=== PATIENT | female | born 1995 ===

== ENCOUNTER 2018-11-12 11:47 | Observation (INO) | payer OTHER ==
[2018-11-12 11:50] VITALS: BMI 30.4
[2018-11-12 13:13] LABS: BASO # 0.1 K/uL (0.0-0.2); BASO % 0.7 % (0.0-2.0); EOS # 0.1 K/uL (0.0-0.7); EOS % 1.2 % (0.0-4.0); HEMOGLOBIN 10.8 g/dL (12.0-16.0); LYMPH # 1.8 K/uL (1.0-4.3); LYMPH % 22.9 % (20.0-40.0); MEAN CELL VOLUME 71.1 fl (81.0-99.0); MEAN CORPUSCULAR HEMOGLOBIN 22.9 pg (27.0-31.0); MEAN CORPUSCULAR HGB CONC 32.2 g/dL (33.0-37.0); MEAN PLATELET VOLUME 8.8 fl (7.2-11.7); MONO # 0.3 K/uL (0.0-0.8); MONO % 3.9 % (0.0-10.0); NEUT # 5.5 K/uL (1.8-7.0); NEUT % 71.3 % (50.0-75.0); NRBC % 0.1 % (0.0-0.0); RBC 4.7 Mil/uL (3.80-5.20); RED CELL DISTRIBUTION WIDTH 16.4 % (11.5-14.5); WHITE BLOOD COUNT 7.7 K/uL (4.8-10.8)
--- NOTE | 2018-11-12 13:21 | ED PDOC ---
HPI: Psych/Substance Abuse Time Seen by Provider: 11/12/18 12:22 Chief Complaint (Nursing): Psychiatric Evaluation Chief Complaint (Provider): psych eval History Per: Patient History/Exam Limitations: no limitations Onset/Duration Of Symptoms: Hrs Current Symptoms Are (Timing): Still Present Suicide/Self Injury Attempted (Context): Ingestion (rat poison ) Modifying Factor(s): None Severity: None Associated Symptoms: Depression, Suicidal Thoughts, Suicidal Plan Additional History Per: Patient Additional Complaint(s): 23 year old female, presents to the emergency room with EMS after called 911 because patient verbalized she had ingested rat poison. She describes the substance as small, blue "pills" she states she only took one about 1 hr 30mins prior to arrival. She is now complaining of epigastric abdominal pain and mid sternal chest pain with mild shortness of breath. Patient states she has been feeling depressed because she is under alot of "pressure". She states her does not understand her and she has a autistic child. she feel she can not handle her situation. She reports this is the first time she has ever a ttempted against her life and has not never seeked medical attention for her symptoms of depression. Denies homicidal ideations, diarrhea, fever, nausea or vomiting. Past Medical History Reviewed: Historical Data, Nursing Documentation, Vital Signs Vital Signs: Last Vital Signs Temp 98.9 F 11/12/18 11:49 Pulse 73 11/12/18 11:49 Resp 16 11/12/18 11:49 BP 138/79 11/12/18 11:49 Pulse Ox 99 11/12/18 11:49 Primary Care Provider: FAMILY PROVIDER,NO - Medical History PMH: No Chronic Diseases - Surgical History Surgical History: Tonsillectomy - Family History Family History: States: Unknown Family Hx - Living Arrangements Living Arrangements: With Family - Social History Alcohol: None Drugs: Denies - Immunization History Hx Tetanus Toxoid Vaccination: No Hx Influenza Vaccination: No Hx Pneumococcal Vaccination: No - Home Medications Home Medications: Ambulatory Orders Medication Instructions Recorded Nitrofurantoin Monohyd/M-Cryst 100 mg PO BID 4 Days #8 capsule 11/13/18 [Nitrofurantoin [place]-Mcr 100 mg] - Allergies Allergies/Adverse Reactions: Allergies Allergy/AdvReac Type Severity Reaction Status Date / Time No Known Allergies Allergy Verified 05/22/19 12:06 Review of Systems ROS Statement: Except As Marked, All Systems Reviewed And Found Negative Constitutional: Negative for: Fever, Chills, Sweats, Weakness, Malaise, Weight loss ENT: Negative for: Throat Pain Cardiovascular: Positive for: Chest Pain. Negative for: Palpitations, Light Headedness Respiratory: Positive for: Shortness of Breath. Negative for: Cough, Hemoptysis, SOB with Exertion, Wheezing Gastrointestinal: Positive for: Abdominal Pain. Negative for: Nausea, Vomiting, Diarrhea, Constipation, Melena, Hematochezia, Hematemesis, Rectal Pain Genitourinary Female: Negative for: Dysuria, Hematuria, Pelvic Pain Skin: Negative for: Rash, Bruising Neurological: Negative for: Weakness, Numbness, Incoordination, Change in Speech, Confusion, Seizures, Altered Mental Status, Headache, Dizziness Psych: Positive for: Depression, Suicidal ideation Physical Exam - Reviewed Nursing Documentation Reviewed: Yes Vital Signs Reviewed: Yes - Physical Exam Appears: Positive for: Well, Non-toxic, No Acute Distress Head Exam: Positive for: ATRAUMATIC, NORMAL INSPECTION, NORMOCEPHALIC Skin: Positive for: Normal Color, Warm. Negative for: Pallor, Jaundice, Mottled, Cyanosis Eye Exam: Positive for: Normal appearance, EOMI, PERRL. Negative for: Conjunctival injection ENT: Positive for: Normal ENT Inspection Neck: Positive for: Normal, Painless ROM, Supple Cardiovascular/Chest: Positive for: Regular Rate, Rhythm, Chest Non Tender Respiratory: Positive for: CNT, Normal Breath Sounds Pulses-Radial (L): 2+ Pulses-Radial (R): 2+ Gastrointestinal/Abdominal: Positive for: Normal Exam, Bowel Sounds (normactive ), Soft. Negative for: Tenderness, Distended Back: Positive for: Normal Inspection. Negative for: L CVA Tenderness, R CVA Tenderness Extremity: Positive for: Normal ROM Neurological/Psych: Positive for: Awake, Alert, Normal Tone, Oriented, Mood/Affect (tearful/sad. patient is otherwise pleasant, calm and cooperative ) - Laboratory Results Result Diagrams: 11/13/18 07:55 11/13/18 07:55 Urine POC: Negative - ECG O2 Sat by Pulse Oximetry: 99 - Radiology X-Ray: Read By Radiologist X-Ray Interpretation: No Acute Disease Medical Decision Making Medical Decision Making: --CBC --CMP --TROPONIN --UA --UPREG --UDS --ALCOHOL --ACETOMINOPHEN --EKG --CHEST XRAY --1:1 12:56 Spoke to Agustín underwriting sales representative at [facility], recommended to obtain baseline PT/INR and repeat coags in 24-48hrs due to possible delayed coagulopathies problems caused by rat poison. 14:27 VS: Temp: 98.9 hr: 90 b/p:116/79 o2sat: 99% rm air labs reviewed by me: unremarkable. UA: positive for lueks and many bacteria. Urine cx to be sent. Patient started on Macrobid PO in ED. Patient will need repeat PT/INR, PTT in 24-48hrs and psych evaluation. Case discussed with Dr. Covarrubias, patient for admission to medical observation for repeat bloodwork. Patient to maintain on 1:1. started 0.9ns for hydration. MD will evaluate patien t in ED. Patient aware of plan, patient states understanding and agrees with plan. 16:39 Poison control advised of blood work and patient disposition. No further recommendations. Disposition - Clinical Impression Clinical Impression: Urinary tract infection, Depression, Suicidal intent - Patient ED Disposition Is Patient to be Admitted: Yes Doctor Will See Patient In The: ED Counseled Patient/Family Regarding: Diagnosis - Disposition Disposition Time: 14:25 Condition: FAIR - Pt Status Changed To: Hospital Disposition Of: Observation - POA Present On Arrival: None
[2018-11-12 13:27] LABS: ALB/GLOB RATIO 1.3 (1.0-2.1); ALBUMIN 4.2 g/dL (3.5-5.0); ALT/SGPT 28 U/L (9-52); AST/SGOT 20 U/L (14-36); BLOOD UREA NITROGEN 9 mg/dl (7-17); CALCIUM 8.9 mg/dL (8.4-10.2); GFR NON-AFRICAN AMERICAN > 60
[2018-11-12 13:29] LABS: SQUAMOUS EPITHIAL 23 /hpf (0-5); URINE BACTERIA MANY (<OCC); URINE BILIRUBIN NEGATIVE (NEGATIVE); URINE BLOOD NEGATIVE (NEGATIVE); URINE CLARITY CLOUDY (Clear); URINE COLOR YELLOW (YELLOW); URINE GLUCOSE (UA) NEG (NEGATIVE); URINE LEUKOCYTE ESTERASE LARGE Leu/uL (Negative); URINE PROTEIN 30 mg/dL (NEGATIVE); URINE UROBILINOGEN 0.2-1.0 mg/dL (0.2-1.0)
[2018-11-12 13:40] LABS: BARBITURATES, UR NEGATIVE (NEGATIVE); BENZODIAZEPINES, UR NEGATIVE (NEGATIVE); OPIATES, UR NEGATIVE (NEGATIVE); PHENCYCLIDINE, UR NEGATIVE (NEGATIVE)
[2018-11-12 13:41] LABS: INR 1.1; PROTHROMBIN TIME 12.9 Seconds (9.8-13.1)
[2018-11-12 13:44] LABS: PARTIAL THROMBOPLASTIN TIME 35.9 Seconds (25.6-37.1)
--- NOTE | 2018-11-12 14:42 | RAD ---
Date of service: 11/12/2018 HISTORY: medical clearance COMPARISON: No prior. TECHNIQUE: 1 view obtained. FINDINGS: LUNGS: No active pulmonary disease. PLEURA: No significant pleural effusion identified, no pneumothorax apparent. CARDIOVASCULAR: No aortic atherosclerotic calcification present. Normal cardiac size. No pulmonary vascular congestion. OSSEOUS STRUCTURES: No significant abnormalities. VISUALIZED UPPER ABDOMEN: Normal. OTHER FINDINGS: None. IMPRESSION: No active disease.
[2018-11-12] MEDS ORDERED: Sodium Chloride 0.9% 1,000 ML IV STA (15:14)
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
[2018-11-12] MEDS ORDERED: Pantoprazole 40 mg EC Tab PO ONE (16:15)
[2018-11-12] MEDS: Pantoprazole 40 mg EC Tab PO SCH (16:16)
--- NOTE | 2018-11-12 17:49 | CARD ---
APPROVED REPORT Date of service: 11/12/2018 EKG Measurement Heart [id number] <Conclusion> Normal sinus rhythm Normal ECG
[2018-11-12] MEDS ORDERED: Sodium Chloride 0.9% 1,000 ML IV SCH (23:45)
[2018-11-13 08:02] LABS: HEMOGLOBIN 10.1 g/dL (12.0-16.0); MEAN CELL VOLUME 72.5 fl (81.0-99.0); MEAN CORPUSCULAR HEMOGLOBIN 22.8 pg (27.0-31.0); MEAN CORPUSCULAR HGB CONC 31.4 g/dL (33.0-37.0); RBC 4.43 Mil/uL (3.80-5.20); RED CELL DISTRIBUTION WIDTH 16.8 % (11.5-14.5); WHITE BLOOD COUNT 5.7 K/uL (4.8-10.8)
[2018-11-13 08:25] LABS: BLOOD UREA NITROGEN 8 mg/dl (7-17); CALCIUM 8.4 mg/dL (8.4-10.2); GFR NON-AFRICAN AMERICAN > 60
[2018-11-13 08:55] LABS: INR 1.1; PROTHROMBIN TIME 12.6 Seconds (9.8-13.1)
[2018-11-13 08:58] LABS: PARTIAL THROMBOPLASTIN TIME 36.7 Seconds (25.6-37.1)
[2018-11-13] MEDS: Pantoprazole 40 mg EC Tab PO SCH (10:12)
--- NOTE | 2018-11-13 11:17 | CP.PCM.PN ---
Subjective - Date & Time of Evaluation Date of Evaluation: 11/13/18 Time of Evaluation: 11:17 - Subjective Subjective: Patient seen and examined at bedside. Denies chest pain, dypsnea, nausea, vomiting, abdominal pain, dysuria, frequency, urgency. Denies SI /HI pending psychiatry evaluation. Objective - Vital Signs/Intake and Output Vital Signs (last 24 hours): Temp Pulse Resp BP Pulse Ox 97.7 F 74 20 117/82 99 11/13/18 07:52 11/13/18 07:52 11/13/18 07:52 11/13/18 07:52 11/13/18 07:52 - Medications Medications: Current Medications Nitrofurantoin Macrocrystals (Macrobid) 100 mg PO Q12 TIANNA; Protocol Last Admin: 11/13/18 10:12 Dose: 100 mg Pantoprazole Sodium (Protonix Ec Tab) 40 mg PO DAILY TIANNA Last Admin: 11/13/18 10:12 Dose: 40 mg - Labs Labs: 11/13/18 07:55 11/13/18 07:55 PT 12.6 Seconds (9.8-13.1) 11/13/18 07:55 INR 1.1 11/13/18 07:55 APTT 36.7 Seconds (25.6-37.1) 11/13/18 07:55 - Constitutional Appears: Non-toxic, No Acute Distress - Eye Exam Eye Exam: Normal appearance - ENT Exam ENT Exam: Mucous Membranes Moist - Respiratory Exam Respiratory Exam: Clear to Ausculation Bilateral, NORMAL BREATHING PATTERN. absent: Accessory Muscle Use, Chest Wall Tenderness, Decreased Breath Sounds, Prolonged Expiratory Phase, Rales, Rhonchi, Wheezes, Respiratory Distress, Stridor - Cardiovascular Exam Cardiovascular Exam: REGULAR RHYTHM, +S1, +S2 - GI/Abdominal Exam GI & Abdominal Exam: Soft, Normal Bowel Sounds. absent: Distended, Firm, Guarding, Rigid, Tenderness, Mass, Rebound - Extremities Exam Extremities Exam: Normal Capillary Refill, Normal Inspection. absent: Calf Tenderness, Pedal Edema, Tenderness - Neurological Exam Neurological Exam: Alert, Awake, Oriented x3 - Psychiatric Exam Psychiatric exam: Normal Affect, Normal Mood - Skin Skin Exam: Dry, Intact, Normal Color, Warm Assessment and Plan - Assessment and Plan (Free Text) Assessment: 23 yo female with no history present to ER due to ingestion of Rat poison admitted for Suicidal attempt. INR normal and PT/PTT normal. Urinalysis positive for UTI. Macrobid day two. Pending psychology consult. Plan: Suicidal attempt with Rat Poison 1 pill of rat poison Patient is not in acute distress Vitals wnl Repeat INR/PT/ PTT WNL CBC/CMB wnl UA + for UTI - Macrobid day 2 Protonix for epigastric pain PSych consult appreciated for Suicidal attempt. DVT SCD Early ambulation
--- NOTE | 2018-11-13 14:06 | CP.PCM.CON ---
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, not receiving enough help from and increased work duties, pt reported increased sleep, poor energy poor motivation feeling hopeless and helpless , on day of evaluation she wanted to end her life so she ingested rat poison then she felt sorry for her children so she informed her Past Patient History - Past Social History Smoking Status: Never Smoked - CARDIAC Hx Cardiac Disorders: No - PULMONARY Hx Respiratory Disorders: No - NEUROLOGICAL Hx Neurological Disorder: No - HEENT Hx HEENT Problems: No - RENAL Hx Chronic Kidney Disease: No - ENDOCRINE/METABOLIC Hx Endocrine Disorders: No - HEMATOLOGICAL/ONCOLOGICAL Hx Blood Disorders: No - INTEGUMENTARY Hx Dermatological Problems: No - MUSCULOSKELETAL/RHEUMATOLOGICAL Hx Musculoskeletal Disorders: No Hx Falls: No - GASTROINTESTINAL Hx Gastrointestinal Disorders: No - GENITOURINARY/GYNECOLOGICAL Hx Genitourinary Disorders: No - PSYCHIATRIC Hx Substance Use: No - SURGICAL HISTORY Hx Surgeries: No Hx Tonsillectomy: Yes - ANESTHESIA Hx Anesthesia: No Hx Anesthesia Reactions: No Meds Allergies/Adverse Reactions: Allergies Allergy/AdvReac Type Severity Reaction Status Date / Time No Known Allergies Allergy Verified 11/12/18 12:06 - Medications Medications: Current Medications Nitrofurantoin Macrocrystals (Macrobid) 100 mg PO Q12 TIANNA; Protocol Last Admin: 11/13/18 10:12 Dose: 100 mg Pantoprazole Sodium (Protonix Ec Tab) 40 mg PO DAILY TIANNA Last Admin: 11/13/18 10:12 Dose: 40 mg Results - Vital Signs Recent Vital Signs: Last Vital Signs Temp 97.7 F 11/13/18 07:52 Pulse 74 11/13/18 07:52 Resp 20 11/13/18 07:52 BP 117/82 11/13/18 07:52 Pulse Ox 99 11/13/18 07:52 - Labs Result Diagrams: 11/13/18 07:55 11/13/18 07:55 Labs: Laboratory Results - last 24 hr 11/13/18 11/13/18 11/13/18 07:55 07:55 07:55 WBC 5.7 RBC 4.43 Hgb 10.1 L Hct 32.1 L MCV 72.5 L MCH 22.8 L MCHC 31.4 L RDW 16.8 H Plt Count 191 PT 12.6 INR 1.1 APTT 36.7 Sodium 137 Potassium 4.4 Chloride 107 Carbon Dioxide 22 Anion Gap 12 BUN 8 Creatinine 0.4 L Est GFR ( Amer) > 60 Est GFR (Non-Af Amer) > 60 Random Glucose 103 Calcium 8.4 Assessment & Plan - Assessment and Plan (Free Text) Assessment: major depression single episode Plan: pt at current mental status need admission to psychiatry for stabilization pt agreed to sign voluntary to 3np after medical clearance
--- NOTE | 2018-11-13 15:10 | CP.PCM.DIS ---
<Sabra Sargent - Last Filed: 11/13/18 15:07> Provider - Provider Date of Admission: 11/12/18 14:46 Attending physician: Raymond Covarrubias MD Consults: 11/13/18 10:42 Psychiatry Consult Routine Comment: Consulting Provider: Leon Ulrich Consulting Physician: Leon Ulrich Reason for Consult: dx toxic ingestion; depression Time Spent in preparation of Discharge (in minutes): 30 Diagnosis - Discharge Diagnosis (1) Suicidal intent Status: Acute Comment: Suicidal attempt with one tablet of Rat poison. PT/PTT and INR within normal range. Asymptomatic. No evidence of bleeding of mucosal membranes. H/H stable. To be admitted to [facility] 3rd floor (2) Depression Status: Acute (3) Urinary tract infection Status: Acute Comment: Urinalysis evident for UTI. Continue Nitrofurantoin for 4 more days. Hospital Course - Lab Results Lab Results: Most Recent Lab Values WBC 5.7 K/uL (4.8-10.8) 11/13/18 07:55 RBC 4.43 Mil/uL (3.80-5.20) 11/13/18 07:55 Hgb 10.1 g/dL (12.0-16.0) L 11/13/18 07:55 Hct 32.1 % (34.0-47.0) L 11/13/18 07:55 MCV 72.5 fl (81.0-99.0) L 11/13/18 07:55 MCH 22.8 pg (27.0-31.0) L 11/13/18 07:55 MCHC 31.4 g/dL (33.0-37.0) L 11/13/18 07:55 RDW 16.8 % (11.5-14.5) H 11/13/18 07:55 Plt Count 191 K/uL (130-400) 11/13/18 07:55 MPV 8.8 fl (7.2-11.7) 11/12/18 13:00 Neut % (Auto) 71.3 % (50.0-75.0) 11/12/18 13:00 Lymph % (Auto) 22.9 % (20.0-40.0) 11/12/18 13:00 [place] % (Auto) 3.9 % (0.0-10.0) 11/12/18 13:00 Eos % (Auto) 1.2 % (0.0-4.0) 11/12/18 13:00 Baso % (Auto) 0.7 % (0.0-2.0) 11/12/18 13:00 Neut # (Auto) 5.5 K/uL (1.8-7.0) 11/12/18 13:00 Lymph # (Auto) 1.8 K/uL (1.0-4.3) 11/12/18 13:00 [place] # (Auto) 0.3 K/uL (0.0-0.8) 11/12/18 13:00 Eos # (Auto) 0.1 K/uL (0.0-0.7) 11/12/18 13:00 Baso # (Auto) 0.1 K/uL (0.0-0.2) 11/12/18 13:00 PT 12.6 Seconds (9.8-13.1) 11/13/18 07:55 INR 1.1 11/13/18 07:55 APTT 36.7 Seconds (25.6-37.1) 11/13/18 07:55 Sodium 137 mmol/l (132-148) 11/13/18 07:55 Potassium 4.4 MMOL/L (3.6-5.0) 11/13/18 07:55 Chloride 107 mmol/L (98-107) 11/13/18 07:55 Carbon Dioxide 22 mmol/L (22-30) 11/13/18 07:55 Anion Gap 12 (10-20) 11/13/18 07:55 BUN 8 mg/dl (7-17) 11/13/18 07:55 Creatinine 0.4 mg/dl (0.7-1.2) L 11/13/18 07:55 Est GFR ( Amer) > 60 11/13/18 07:55 Est GFR (Non-Af Amer) > 60 11/13/18 07:55 Random Glucose 103 mg/dL (65-105) 11/13/18 07:55 Calcium 8.4 mg/dL (8.4-10.2) 11/13/18 07:55 Total Bilirubin 0.3 mg/dl (0.2-1.3) 11/12/18 13:00 AST 20 U/L (14-36) 11/12/18 13:00 ALT 28 U/L (9-52) 11/12/18 13:00 Alkaline Phosphatase 94 U/L (38-126) 11/12/18 13:00 Troponin I < 0.0120 ng/mL (0.00-0.120) 11/12/18 13:00 Total Protein 7.4 G/DL (6.3-8.2) 11/12/18 13:00 Albumin 4.2 g/dL (3.5-5.0) 11/12/18 13:00 Globulin 3.2 gm/dL (2.2-3.9) 11/12/18 13:00 Albumin/Globulin Ratio 1.3 (1.0-2.1) 11/12/18 13:00 Urine Color Yellow (YELLOW) 11/12/18 13:15 Urine Clarity Cloudy (Clear) 11/12/18 13:15 Urine pH 6.0 (5.0-8.0) 11/12/18 13:15 Ur Specific [place] 1.025 (1.003-1.030) 11/12/18 13:15 Urine Protein 30 mg/dL (NEGATIVE) 11/12/18 13:15 Urine Glucose (UA) Neg mg/dL (NEGATIVE) 11/12/18 13:15 Urine Ketones Negative mg/dL (NEGATIVE) 11/12/18 13:15 Urine Blood Negative (NEGATIVE) 11/12/18 13:15 Urine Nitrate Negative (NEGATIVE) 11/12/18 13:15 Urine Bilirubin Negative (NEGATIVE) 11/12/18 13:15 Urine Urobilinogen 0.2-1.0 mg/dL (0.2-1.0) 11/12/18 13:15 Ur Leukocyte Esterase Large Castro/uL (Negative) 11/12/18 13:15 Urine RBC (Auto) 20 /hpf (0-3) H 11/12/18 13:15 Urine Microscopic WBC 18 /hpf (0-5) H 11/12/18 13:15 Ur Squamous Epith Cells 23 /hpf (0-5) H 11/12/18 13:15 Urine Bacteria Many (<OCC) H 11/12/18 13:15 Urine Opiates Screen Negative (NEGATIVE) 11/12/18 13:15 Urine Methadone Screen Negative (NEGATIVE) 11/12/18 13:15 Acetaminophen < 10.0 ug/ml (10.0-30.0) L 11/12/18 13:00 Ur Barbiturates Screen Negative (NEGATIVE) 11/12/18 13:15 Ur Phencyclidine Scrn Negative (NEGATIVE) 11/12/18 13:15 Ur Amphetamines Screen Negative (NEGATIVE) 11/12/18 13:15 U Benzodiazepines Scrn Negative (NEGATIVE) 11/12/18 13:15 U Oth Cocaine Metabols Negative (NEGATIVE) 11/12/18 13:15 U Cannabinoids Screen Negative (NEGATIVE) 11/12/18 13:15 Alcohol, Quantitative < 10 mg/dl (0-10) 11/12/18 13:00 - Hospital Course Hospital Course: 23 yo female with no history present to ER due to ingestion of Rat poison admitted for Suicidal attempt. INR normal and PT/PTT normal. H/H stable. No evidence of bleeding. Urinalysis positive for UTI. Will be admitted To psychiatric floor for suicidal attempt. Macrobid BID to be continued for 4 more days for UTI. Discharge Exam - Head Exam Head Exam: ATRAUMATIC, NORMAL INSPECTION, NORMOCEPHALIC - Eye Exam Eye Exam: Normal appearance - ENT Exam ENT Exam: Mucous Membranes Moist - Respiratory Exam Respiratory Exam: Clear to PA & Lateral, NORMAL BREATHING PATTERN, UNREMARKABLE. absent: Accessory Muscle Use, Chest Wall Tenderness, Decreased Breath Sounds, Prolonged Expiratory Phase, Rales, Rhonchi, Wheezes, Respiratory Distress, Stridor - Cardiovascular Exam Cardiovascular Exam: +S1, +S2 - GI/Abdominal Exam GI & Abdominal Exam: Normal Bowel Sounds, Soft, Unremarkable. absent: Diminished Bowel Sounds, Distended, Firm, Rebound, Rigid, Tenderness - Extremities Exam Extremities exam: normal capillary refill, normal inspection, pedal pulses present - Neurological Exam Neurological exam: Alert, Oriented x3 - Psychiatric Exam Psychiatric exam: Normal Affect, Normal Mood - Skin Skin Exam: Dry, Intact, Normal Color, Warm Discharge Plan - Discharge Medications Prescriptions: Nitrofurantoin Monohyd/M-Cryst [Nitrofurantoin [place]-Mcr 100 mg] 100 mg PO BID 4 Days #8 capsule - Follow Up Plan Condition: FAIR Disposition: HOME/ ROUTINE Patient education suggested?: Yes Instructions: Depression, Adult (DC), Urinary Tract Infection, Adult (DC) Additional Instructions: hacer ally con oscar doctor primario dentro 1 semana Outpt Psych appt colt Referrals: [facility] [Outside] at [place] [Outside] Leon Ulrich MD [Medical Doctor] - <Marita Gray - Last Filed: 11/14/18 17:52> Provider - Provider Date of Admission: 11/12/18 14:46 Attending physician: Raymond Covarrubias MD Consults: 11/13/18 10:42 Psychiatry Consult Routine Comment: Consulting Provider: Leon Ulrich Consulting Physician: Leon Ulrich Reason for Consult: dx toxic ingestion; depression Hospital Course - Lab Results Lab Results: Micro Results 11/12/18 16:45 Urine Random Urine Culture - Final Lactobacillus Species Most Recent Lab Values WBC 5.7 K/uL (4.8-10.8) 11/13/18 07:55 RBC 4.43 Mil/uL (3.80-5.20) 11/13/18 07:55 Hgb 10.1 g/dL (12.0-16.0) L 11/13/18 07:55 Hct 32.1 % (34.0-47.0) L 11/13/18 07:55 MCV 72.5 fl (81.0-99.0) L 11/13/18 07:55 MCH 22.8 pg (27.0-31.0) L 11/13/18 07:55 MCHC 31.4 g/dL (33.0-37.0) L 11/13/18 07:55 RDW 16.8 % (11.5-14.5) H 11/13/18 07:55 Plt Count 191 K/uL (130-400) 11/13/18 07:55 MPV 8.8 fl (7.2-11.7) 11/12/18 13:00 Neut % (Auto) 71.3 % (50.0-75.0) 11/12/18 13:00 Lymph % (Auto) 22.9 % (20.0-40.0) 11/12/18 13:00 [place] % (Auto) 3.9 % (0.0-10.0) 11/12/18 13:00 Eos % (Auto) 1.2 % (0.0-4.0) 11/12/18 13:00 Baso % (Auto) 0.7 % (0.0-2.0) 11/12/18 13:00 Neut # (Auto) 5.5 K/uL (1.8-7.0) 11/12/18 13:00 Lymph # (Auto) 1.8 K/uL (1.0-4.3) 11/12/18 13:00 [place] # (Auto) 0.3 K/uL (0.0-0.8) 11/12/18 13:00 Eos # (Auto) 0.1 K/uL (0.0-0.7) 11/12/18 13:00 Baso # (Auto) 0.1 K/uL (0.0-0.2) 11/12/18 13:00 PT 12.6 Seconds (9.8-13.1) 11/13/18 07:55 INR 1.1 11/13/18 07:55 APTT 36.7 Seconds (25.6-37.1) 11/13/18 07:55 Sodium 137 mmol/l (132-148) 11/13/18 07:55 Potassium 4.4 MMOL/L (3.6-5.0) 11/13/18 07:55 Chloride 107 mmol/L (98-107) 11/13/18 07:55 Carbon Dioxide 22 mmol/L (22-30) 11/13/18 07:55 Anion Gap 12 (10-20) 11/13/18 07:55 BUN 8 mg/dl (7-17) 11/13/18 07:55 Creatinine 0.4 mg/dl (0.7-1.2) L 11/13/18 07:55 Est GFR ( Amer) > 60 11/13/18 07:55 Est GFR (Non-Af Amer) > 60 11/13/18 07:55 Random Glucose 103 mg/dL (65-105) 11/13/18 07:55 Calcium 8.4 mg/dL (8.4-10.2) 11/13/18 07:55 Total Bilirubin 0.3 mg/dl (0.2-1.3) 11/12/18 13:00 AST 20 U/L (14-36) 11/12/18 13:00 ALT 28 U/L (9-52) 11/12/18 13:00 Alkaline Phosphatase 94 U/L (38-126) 11/12/18 13:00 Troponin I < 0.0120 ng/mL (0.00-0.120) 11/12/18 13:00 Total Protein 7.4 G/DL (6.3-8.2) 11/12/18 13:00 Albumin 4.2 g/dL (3.5-5.0) 11/12/18 13:00 Globulin 3.2 gm/dL (2.2-3.9) 11/12/18 13:00 Albumin/Globulin Ratio 1.3 (1.0-2.1) 11/12/18 13:00 Urine Color Yellow (YELLOW) 11/12/18 13:15 Urine Clarity Cloudy (Clear) 11/12/18 13:15 Urine pH 6.0 (5.0-8.0) 11/12/18 13:15 Ur Specific [place] 1.025 (1.003-1.030) 11/12/18 13:15 Urine Protein 30 mg/dL (NEGATIVE) 11/12/18 13:15 Urine Glucose (UA) Neg mg/dL (NEGATIVE) 11/12/18 13:15 Urine Ketones Negative mg/dL (NEGATIVE) 11/12/18 13:15 Urine Blood Negative (NEGATIVE) 11/12/18 13:15 Urine Nitrate Negative (NEGATIVE) 11/12/18 13:15 Urine Bilirubin Negative (NEGATIVE) 11/12/18 13:15 Urine Urobilinogen 0.2-1.0 mg/dL (0.2-1.0) 11/12/18 13:15 Ur Leukocyte Esterase Large Castro/uL (Negative) 11/12/18 13:15 Urine RBC (Auto) 20 /hpf (0-3) H 11/12/18 13:15 Urine Microscopic WBC 18 /hpf (0-5) H 11/12/18 13:15 Ur Squamous Epith Cells 23 /hpf (0-5) H 11/12/18 13:15 Urine Bacteria Many (<OCC) H 11/12/18 13:15 Urine Opiates Screen Negative (NEGATIVE) 11/12/18 13:15 Urine Methadone Screen Negative (NEGATIVE) 11/12/18 13:15 Acetaminophen < 10.0 ug/ml (10.0-30.0) L 11/12/18 13:00 Ur Barbiturates Screen Negative (NEGATIVE) 11/12/18 13:15 Ur Phencyclidine Scrn Negative (NEGATIVE) 11/12/18 13:15 Ur Amphetamines Screen Negative (NEGATIVE) 11/12/18 13:15 U Benzodiazepines Scrn Negative (NEGATIVE) 11/12/18 13:15 U Oth Cocaine Metabols Negative (NEGATIVE) 11/12/18 13:15 U Cannabinoids Screen Negative (NEGATIVE) 11/12/18 13:15 Alcohol, Quantitative < 10 mg/dl (0-10) 11/12/18 13:00 Attending/Attestation - Attestation I have personally seen and examined this patient.: Yes I have fully participated in the care of the patient.: Yes I have reviewed all pertinent clinical information, including history, physical exam and plan: Yes Notes (Text): Rat Poison Ingestion, Intentional Suicidal Attempt Depression Urinary tract infection Pt observed in the Hospital with 1:1 she claims she took only 1 tablet INR monitored- normal Pt remained stable Psych rec Inpatient admission- pt refused , [facility] called for involuntary admission however deemed not committable Cleared by DR Ulrich for discharge home and outpt Psych ff up
[2018-11-13 15:48] VITALS: RESP 18
[2018-11-14 00:05] VITALS: BP 107/62; PULSE 94; TEMP 98.5
[2018-11-14] MEDS: Pantoprazole 40 mg EC Tab PO SCH (09:40)
--- NOTE | 2018-11-14 10:35 | CP.PCM.PN ---
<RosettaEliaSabra - Last Filed: 11/14/18 11:16> Subjective - Date & Time of Evaluation Date of Evaluation: 11/14/18 Time of Evaluation: 10:35 - Subjective Subjective: Patient was not discharged yesterday to psychiatry given that she did not want to be admitted to psych. [facility] was called but they reported that the patient did not meet criteria for involuntary inpatient admission and may be discharged safely home. Objective - Vital Signs/Intake and Output Vital Signs (last 24 hours): Temp Pulse Resp BP Pulse Ox 98.5 F 94 H 18 107/62 95 11/14/18 00:05 11/14/18 00:05 11/14/18 00:05 11/14/18 00:05 11/14/18 00:05 - Medications Medications: Current Medications Nitrofurantoin Macrocrystals (Macrobid) 100 mg PO Q12 [facility]; Protocol Last Admin: 11/14/18 09:40 Dose: 100 mg Pantoprazole Sodium (Protonix Ec Tab) 40 mg PO DAILY [facility] Last Admin: 11/14/18 09:40 Dose: 40 mg - Labs Labs: 11/13/18 07:55 11/13/18 07:55 PT 12.6 Seconds (9.8-13.1) 11/13/18 07:55 INR 1.1 11/13/18 07:55 APTT 36.7 Seconds (25.6-37.1) 11/13/18 07:55 - Constitutional Appears: Non-toxic, No Acute Distress - Head Exam Head Exam: NORMAL INSPECTION - Eye Exam Eye Exam: Normal appearance - ENT Exam ENT Exam: Mucous Membranes Moist - Respiratory Exam Respiratory Exam: Clear to Ausculation Bilateral, NORMAL BREATHING PATTERN. absent: Accessory Muscle Use, Chest Wall Tenderness, Decreased Breath Sounds, Prolonged Expiratory Phase, Rales, Rhonchi, Wheezes, Respiratory Distress, Stridor - Cardiovascular Exam Cardiovascular Exam: REGULAR RHYTHM, +S1, +S2 - GI/Abdominal Exam GI & Abdominal Exam: Soft, Normal Bowel Sounds. absent: Distended, Firm, Guarding, Rigid, Rebound - Extremities Exam Extremities Exam: Normal Capillary Refill, Normal Inspection. absent: Calf Tenderness, Joint Swelling, Pedal Edema, Tenderness - Neurological Exam Neurological Exam: Alert, Awake, Oriented x3 - Psychiatric Exam Psychiatric exam: Normal Affect, Normal Mood Additional comments: No SI/HI at this time - Skin Skin Exam: Dry, Intact, Normal Color, Warm Assessment and Plan (1) Suicidal intent Status: Acute (2) Depression Status: Acute (3) Urinary tract infection Status: Acute - Assessment and Plan (Free Text) Assessment: 23 yo female with no history present to ER due to ingestion of Rat poison admitted for Suicidal attempt. INR normal and PT/PTT normal. Urinalysis positive for UTI. Macrobid day two. Patient seen by [facility] for involuntary admission because of use of rat poisoning for suicidal intention. Cleared from [facility] as safe discharge at this time without need for psychiatric admission. Patient will be discharged home. Plan: Suicidal attempt with Rat Poison 1 pill of rat poison Patient is not in acute distress Vitals wnl Repeat INR/PT/ PTT WNL CBC/CMB wnl UA + for UTI - Macrobid day 2 Protonix for epigastric pain Patient discharged home as deemed safe by [facility] to be discharged home. <Marita Gray - Last Filed: 11/14/18 17:50> Objective - Vital Signs/Intake and Output Vital Signs (last 24 hours): Temp Pulse Resp BP Pulse Ox 98.5 F 94 H 18 107/62 95 11/14/18 00:05 11/14/18 00:05 11/14/18 00:05 11/14/18 00:05 11/14/18 00:05 - Labs Labs: 11/13/18 07:55 11/13/18 07:55 PT 12.6 Seconds (9.8-13.1) 11/13/18 07:55 INR 1.1 11/13/18 07:55 APTT 36.7 Seconds (25.6-37.1) 11/13/18 07:55 Attending/Attestation - Attestation I have personally seen and examined this patient.: Yes I have fully participated in the care of the patient.: Yes I have reviewed all pertinent clinical information, including history, physical exam and plan: Yes Notes (Text): Rat Poison Ingestion, Intentional Suicidal Attempt Depression Urinary tract infection Pt observed in the Hospital with 1:1 she claims she took only 1 tablet INR monitored- normal Pt remained stable Psych rec Inpatient admission- pt refused , [facility] called for involuntary admission however deemed not committable Cleared by DR Ulrich for discharge home and outpt Psych ff up
[2018-11-14 21:26] VITALS: O2SAT 99
== END 2018-11-14 12:47 | disposition home or self-care (01) ==
LOC: H.ER 11:47 → H.ERHOLD 14:46 → INTOOBSV 14:46 → H.MEDSURG1 17:25
DX: T60.4X2A Toxic effect of rodenticides, intentional self-harm, initial encounter (principal); F32.9 Major depressive disorder, single episode, unspecified; N39.0 Urinary tract infection, site not specified; R10.13 Epigastric pain
CPT/HCPCS: 36415; 71045; 80048; 80053; 80320; 80324; 80329; 80345; 80346; 80349; 80353; 80358; 80361; 81003; 81025; 83992; 84484; 85025; 85027; 85610; 85730; 87086; 93005; 99285; G0378; J7030

== ENCOUNTER 2018-11-20 00:40 | Emergency (ER) | payer SELFPAY ==
[2018-11-20 00:40] VITALS: BMI 30.4
[2018-11-20 01:09] VITALS: BP 119/76; RESP 16; TEMP 98.5
[2018-11-20] MEDS ORDERED: Tdap Vaccine 0.5 ml Vial (10-64 yrs) IM ONE ×2 (01:11→01:21)
--- NOTE | 2018-11-20 01:17 | ED PDOC ---
HPI: Skin/Bite Injury Time Seen by Provider: 11/20/18 01:00 Chief Complaint (Nursing): Bite Chief Complaint (Provider): mouse bite History Per: Patient, Fire Management Specialist (Miguelangel melendez/certified content administrator) History/Exam Limitations: no limitations Onset/Duration Of Symptoms: Mins Current Symptoms Are (Timing): Still Present Additional Complaint(s): 23 y/o female presents for evaluation of mouse bite to left foot prior to arrival. Patient states she was getting into bed when a mouse ran out from under her heater, bit her foot, then ran away. Denies pain, numbness/weakness left lower extremity. Last Tetanus unknown Past Medical History Reviewed: Historical Data, Nursing Documentation, Vital Signs Vital Signs: Last Vital Signs Temp 98.5 F 11/20/18 01:05 Pulse 91 H 11/20/18 01:05 Resp 16 11/20/18 01:05 BP 119/76 11/20/18 01:05 Pulse Ox 98 11/20/18 01:05 Primary Care Provider: FAMILY PROVIDER,NO - Medical History PMH: No Chronic Diseases Denies: Chronic Kidney Disease - Surgical History Surgical History: Tonsillectomy - Family History Family History: States: Unknown Family Hx - Living Arrangements Living Arrangements: With Family - Immunization History Hx Tetanus Toxoid Vaccination: No Hx Influenza Vaccination: No Hx Pneumococcal Vaccination: No - Home Medications Home Medications: Ambulatory Orders Medication Instructions Recorded Nitrofurantoin Monohyd/M-Cryst 100 mg PO BID 4 Days #8 capsule 11/13/18 [Nitrofurantoin [place]-Mcr 100 mg] Doxycycline Hyclate 100 mg PO BID #14 capsule 11/20/18 - Allergies Allergies/Adverse Reactions: Allergies Allergy/AdvReac Type Severity Reaction Status Date / Time No Known Allergies Allergy Verified 11/20/18 01:04 Review of Systems ROS Statement: Except As Marked, All Systems Reviewed And Found Negative Musculoskeletal: Positive for: Foot Pain (bite left foot 4th digit) Physical Exam - Reviewed Nursing Documentation Reviewed: Yes Vital Signs Reviewed: Yes - Physical Exam Appears: Positive for: Well, Non-toxic, No Acute Distress Extremity: Positive for: Normal ROM, Capillary Refill <2 Sec, Other (2 puncture wounds distal left foot 4th digit; no active bleeding, surrounding erythema or tenderness noted. FROM. Distal NV/motor intact) Neurological/Psych: Positive for: Awake, Alert, Oriented (x3) - ECG O2 Sat by Pulse Oximetry: 98 - Progress ED Course And Treament: -upreg -Adacel IM -wound care Wound irrigated with normal saline, bacitracin applied, bandage applied Patient educated on findings, discharged with rx Doxycycline Advised follow up PMD within 2-3 days Return precautions given Disposition - Clinical Impression Clinical Impression: Bitten by mouse - Patient ED Disposition Is Patient to be Admitted: No Counseled Patient/Family Regarding: Diagnosis, Need For Followup, Rx Given - Disposition Referrals: [facility] [Outside] Disposition: Routine/Home Disposition Time: 01:19 Condition: IMPROVED Prescriptions: Doxycycline Hyclate 100 mg PO BID #14 capsule Instructions: Animal Bites (DC) Print Language: CROAT[place]
[2018-11-20 02:00] VITALS: PULSE 84; O2SAT 100
== END 2018-11-20 01:47 | disposition home or self-care (01) ==
LOC: H.ER 00:40
DX: S91.352A Open bite, left foot, initial encounter (principal); W53.01XA Bitten by mouse, initial encounter; Y92.003 Bedroom of unspecified non-institutional (private) residence as the place of occurrence of the external cause; Z23 Encounter for immunization